=== PATIENT | female | born 1980 | race Two or more races ===

== ENCOUNTER → 2024-05-14 | Emergency (ER) | payer OTHER ==
[~2024-05-14] VITALS: Ht 175.3 cm; Wt 78.9 kg
[~2024-05-14] MED LIST: 0.9 % SODIUM CHLORIDE 1,000 ML IV SCH; CEFTRIAXONE SODIUM 2,000 MG VIAL IV ONE; KETOROLAC TROMETHAMINE 30 MG VIAL IV ONE; LEVSIN/SL0.125 MG SL; MOXIFLOXACIN H400 MG PO; PEPCID AC20 MG PO; PROZAC40 MG PO
[2024-05-14 10:24] LABS: HEMATOCRIT 38.2 % (36.0-45.00); HEMOGLOBIN 13.3 g/dL (12.0-15.00); MEAN CELL VOLUME 85.3 fL (80.00-100.00); MEAN CORPUSCULAR HEMOGLOBIN 29.6 pg (27.00-32.0); MEAN CORPUSCULAR HGB CONC 34.7 g/dl (32.0-36.0); PLATELET COUNT 258 K/uL (150-450); RED BLOOD COUNT 4.47 M/uL (4.00-6.00); RED CELL DISTRIBUTION WIDTH 13.3 % (11.5-14.5)
[2024-05-14 10:57] LABS: INR 0.99; PARTIAL THROMBOPLASTIN TIME 28.6 SECONDS (22.0-34.0); PROTHROMBIN TIME 10.8 SECONDS (9.0-11.5)
[2024-05-14 11:05] LABS: URINE APPEARANCE Clear; URINE BILIRRUBIN Negative (NEGATIVE); URINE BLOOD Negative; URINE COLOR Yellow; URINE GLUCOSE Negative (NEGATIVE); URINE KETONE Negative (NEGATIVE); URINE LEUKOCYTE Negative; URINE NITRATE Negative; URINE PROTEIN Negative (NEGATIVE); URINE UROBILINOGEN 0.2 E.U./dl
[2024-05-14 11:06] LABS: ALBUMIN 3.7 gm/dL (3.4-5.0); BILIRUBIN TOTAL 0.77 mg/dL (0.3-1.2); CALCIUM 9.3 mg/dL (8.5-10.1); CREATININE SERUM 0.96 mg/dL (0.55-1.02); GFR 64.05; GLOBULINA 3.1 G/DL (2.4-3.5); POTASSIUM 3.94 mEq/L (3.5-5.1); TOTAL PROTEIN 6.8 gm/dL (6.4-8.2)
[2024-05-14 11:09] LABS: URINE BACTERIA 161.5 uL (0.0-1933); URINE EPITHELIAL CELLS 6.6 uL (0.0-38.8); URINE RBC 18.5 uL (0.0-20.8)
[2024-05-14 11:13] LABS: URINE CAST 0.44 uL (0.0-1.40); URINE WBC 0.7 uL (0.0-23.2)
== END | disposition left against medical advice (07) ==
LOC: ER 08:50
PROVIDERS: General Practice
DX: K37 Unspecified appendicitis (principal); R10.31 Right lower quadrant pain; R10.9 Unspecified abdominal pain
CPT/HCPCS: 36415; 74177; 96365; 99284; J7030; Q9965